=== PATIENT | female | born 1935 | race Caucasian/White ===

== ENCOUNTER 2021-01-27 18:57 | Inpatient (IN) | payer OTHER ==
[~2021-01-27] VITALS: Ht 162.6 cm; Wt 68.0 kg
[2021-01-27 20:18] LABS: HEMATOCRIT 22.6 % (31.2-41.9); MEAN CORPUSCULAR HEMOGLOBIN 31.2 uug (24.7-32.8); MEAN CORPUSCULAR VOLUME 95.1 fL (75.5-95.3); PLATELET COUNT (AUTO) 518 K/uL (179-408)
[2021-01-27 20:26] LABS: CARBON DIOXIDE 21 mmol/L (21-32); CHLORIDE 108 mmol/L (98-107); CREATININE 1.2 mg/dL (0.6-1.3); GLUCOSE 157 mg/dL (74-106); POTASSIUM 4.2 mmol/L (3.5-5.1); UREA NITROGEN, BLOOD 30 mg/dL (7-18)
[2021-01-27 20:37] LABS: ALANINE AMINOTRANSFERASE 15 U/L (14-59); ALKALINE PHOSPHATASE 53 U/L (50-136); ASPARTATE AMINOTRANSFERASE 21 U/L (15-37); BILIRUBIN,DIRECT 0.1 mg/dL (0.0-0.2); BILIRUBIN,TOTAL 0.4 mg/dL (0.2-1.0); TOTAL PROTEIN, SERUM 3.9 g/dL (6.4-8.2)
[2021-01-27] MEDS ORDERED: VANCOMYCIN 1G/D5W 200 ML PIGGYBACK IV ONE (20:45)
[2021-01-27] MEDS ORDERED: CEFEPIME HCL 2 G in IV DEXTROSE 5% 100 ML IV ONE (20:45)
[2021-01-27] MEDS ORDERED: KLOR CON PO (20:52)
[2021-01-27] MEDS ORDERED: ATOR20TA PO (20:52)
[2021-01-27] MEDS ORDERED: LOSA100T31 PO (20:52)
[2021-01-27] MEDS ORDERED: APIX5TAB4 PO (20:52)
[2021-01-27] MEDS ORDERED: FURO-152 PO (20:52)
[2021-01-27] MEDS ORDERED: MELO-107 PO (20:52)
[2021-01-27] MEDS ORDERED: FLEC100T3 PO (20:52)
[2021-01-27] MEDS ORDERED: CEFEPIME HCL 1 G VIAL ONE (21:11)
[2021-01-27] MEDS ORDERED: levoFLOXacin 500 MG/D5W 100ML PIGGYBACK IV ONE (21:30)
[2021-01-27] MEDS ORDERED: AZITHROMYCIN IV 500 MG in IV DEXTROSE 5% 250 ML IV ONE (21:30)
[2021-01-27] MEDS ORDERED: AZTREONAM 1 G VIAL IV ONE (21:30)
--- NOTE | 2021-01-27 21:56 | NUR ---
Started 1st unit of PRBC. Patient tolerating infusion at this time.
[2021-01-27 22:04] LABS: *BILIRUBIN,URIN NEGATIVE (NEGATIVE); *BLOOD, URINE NEGATIVE (NEGATIVE); *CLARITY,URINE CLEAR (CLEAR); *COLOR,URINE YELLOW (YELLOW); *KETONES,URINE 1+ (NEGATIVE); *UROBILINOGEN,URINE 0.2 E.U./dl (NORMAL); LEUKOCYTE ESTERASE ,URINE NEGATIVE (NEGATIVE); NITRITE, URINE NEGATIVE (NEGATIVE); PH,URINE 5.5 (5.0-8.0); UGLUCOSE NEGATIVE (NEGATIVE)
[2021-01-27] MEDS ORDERED: AZTREONAM 1 G VIAL ONE (23:37)
--- NOTE | 2021-01-28 00:45 | NUR ---
IVPB Azactam completed.
--- NOTE | 2021-01-28 01:18 | NUR ---
Patient tolerated 1st unit of PRBC. 1st unit completed.
--- NOTE | 2021-01-28 01:49 | NUR ---
Dr Lema speaking with Donna saul MD.
--- NOTE | 2021-01-28 01:58 | NUR ---
Paged Epic panel onion farmer, Waiting for Diana Tolbert [employer] to call back.
--- NOTE | 2021-01-28 02:04 | NUR ---
Dr. Lema on panel call with Diana Tolbert.
[2021-01-28] MEDS ORDERED: Z GUARD REMEDY PASTE 57 GM TUBE TOP PRN (02:15)
[2021-01-28] MEDS ORDERED: IV LACTATED RINGERS SOLUTION 1,000 ML IV ONE ×2 (02:15→03:15)
[2021-01-28] MEDS ORDERED: MAGNESIUM HYDROXIDE 30 ML LIQUID UDC PO PRN (02:15)
[2021-01-28] MEDS ORDERED: ONDANSETRON 4 MG/2 ML VIAL IV PRN (02:15)
[2021-01-28] MEDS ORDERED: levoFLOXacin 500 MG/D5W 500 MG in PREMIXED 1 EACH IV SCH (02:15)
[2021-01-28 02:22] LABS: HEMATOCRIT 26.5 % (31.2-41.9)
[2021-01-28] MEDS ORDERED: levoFLOXacin 500 MG/D5W 100 ML ONE (02:22)
--- NOTE | 2021-01-28 02:51 | NUR ---
Transfered to 3rd floor Tele via gurny with no distress noted.
[2021-01-28] MEDS: ACETAMINOPHEN 325 MG TABLET PO PRN ×3 (03:15→20:12)
--- NOTE | 2021-01-28 04:24 | NUR ---
Pt arrived in the unit at 0253 via gurney. Admitted to [facility] for Symptomatic Anemia and Sepsis. No acute distress noted. Pleasant and cooperative. No active bleeding noted. Pertinent assessment done. Pt on NPO except meds. IV sites in left ac and right ac, patent and intact. IV LR running at 75 cc/ hr, x1 order. Safety measures maintained. Call light within reach. Will continue to monitor.
[2021-01-28 04:31] VITALS: BP 144/60
--- NOTE | 2021-01-28 08:00 | NUR ---
RECEIVED PATIENT IN BED AWAKE ALERT AND ORIENTED X3 WITH [place] BILATERALLY. NO BLEEDING NOTED. KEEP NPO SR ON MONITOR
[2021-01-28] MEDS: PANTOPRAZOLE SODIUM 40 MG VIAL IV SCH (08:19)
[2021-01-28] MEDS: LOSARTAN POTASSIUM 50 MG TABLET PO SCH (08:19)
--- NOTE | 2021-01-28 10:00 | NUR ---
SEEN BY DR WESLEY FOR CARDIAC FOLLOW-UP HELD ELIQUIS UNTIL CLEARED BY [facility] DOCTOR. NO SIGNS OF BLEEDING ON LR IV AT 75 TO COMPLETE
--- NOTE | 2021-01-28 10:30 | NUR ---
SEEN BY DR BJORN RIVERAATATED PLAN OF CARE AND ADVISED TO FINISH IVF AND START ON CARDIAC DIET
[2021-01-28 11:33] VITALS: BP 138/53
--- NOTE | 2021-01-28 15:11 | NUR ---
RESTING COMFORTABLY IN BED NO SIGNS OF ACTIVE BLEEDING FROM THE NOSE.
[2021-01-28 15:27] VITALS: BP 129/50
[2021-01-28 17:16] LABS: *OCCULT BLOOD STOOL POSITIVE (NEGATIVE)
--- NOTE | 2021-01-28 18:49 | NUR ---
Patient noted blood in the stool. notified with orders STOOL OB and came back POSITIVE. Per Dr. Rico order, collected COVID19 PCR and discontinued LR. Transfer patient to isolation room. Patient is resting in bed with no signs of distress or discomfort. O2 saturating at 95% on RA. Call lights within reach, bed in lowest position and bed alarm on.
[2021-01-28] MEDS: ATORVASTATIN 20 MG TABLET PO SCH (20:12)
[2021-01-28 20:30] VITALS: BP 133/53
[2021-01-29] VITALS (9 sets, daily range): BP systolic 137–164; BP diastolic 56–89
[2021-01-29] MEDS: LEVOFLOXACIN/D5W 250 MG in PREMIX 1 EA IV SCH (01:29)
[2021-01-29] MEDS: ACETAMINOPHEN 325 MG TABLET PO PRN ×3 (02:23→18:40)
--- NOTE | 2021-01-29 05:25 | NUR ---
Slept fairly. Heart monitor leads frequently off and patient refused to have it fixed stating"leave me alone I want to sleep". Charge nurse aware. Continue on IVPB antibiotic Levaquin without s/s of adverse reaction noted. Remain afebrile. No s/s of respiratory distress. No BM reported. No episode of nose bleed. Continue care as planned.
[2021-01-29 07:24] LABS: HEMATOCRIT 22.8 % (31.2-41.9); MEAN CORPUSCULAR VOLUME 94.1 fL (75.5-95.3); PLATELET COUNT (AUTO) 297 K/uL (179-408)
[2021-01-29 07:39] LABS: CREATININE 1.1 mg/dL (0.6-1.3); MAGNESIUM 2.2 mg/dL (1.8-2.4); PHOSPHOROUS 3.9 mg/dL (2.5-4.9); POTASSIUM 4.1 mmol/L (3.5-5.1)
--- NOTE | 2021-01-29 08:00 | NUR ---
Received report from pm shift. Patient is resting in bed.Alert, Oriented x 4, 02 saturating at 97% on RA. No signs of respiratory distress. Patient appears anxious but remains calm. Morning medications given and compliant. IV intact and patent. Call lights within reach, bed at the lowest positioned and bed alarm on.
[2021-01-29] MEDS: PANTOPRAZOLE SODIUM 40 MG VIAL IV SCH ×2 (08:23→20:37)
[2021-01-29] MEDS: LOSARTAN POTASSIUM 50 MG TABLET PO SCH (08:32)
--- NOTE | 2021-01-29 10:05 | NUR ---
Small black, formed stool amount noted in BM. Will continue to monitor.
--- NOTE | 2021-01-29 11:00 | NUR ---
HOSPITALIST RADHA DODSON IN AND EXAMINED PATIENT MADE AWARE OF LAB RESULTS WITH ORDER TO TRANSFUSE 1 UNIT OF PRBC
--- NOTE | 2021-01-29 16:08 | NUR ---
RBC blood transfusion started. Patient closely monitored
--- NOTE | 2021-01-29 16:29 | NUR ---
Noted vital signs no change from initial blood transfusion. no signs of reaction. will continue to monitor
--- NOTE | 2021-01-29 18:10 | NUR ---
Patient lying in bed with RBC transfusing. Patient tolerating RBC transfusion well. Alert, oriented x 4. Oxygen saturating at 97% on RA. No signs of respiratory distress. Patient compliant with medication and care. Call lights within reach, bed locked at lowest position, bed alarm on, and side rails x 2 up.
--- NOTE | 2021-01-29 18:53 | NUR ---
Hospitalist Mayito Figueredo NP notified pt bp 171/80 and gave orders for PRN hydralazine 10 mg Q6H for SBP > 170.
[2021-01-29] MEDS: hydrALAZINE HCL 20 MG/1 ML VIAL IV PRN (19:03)
--- NOTE | 2021-01-29 19:32 | NUR ---
Patient in bed awake alertx4.Noted to be anxious about her Blood transfusion. Re-assurance rendered.Blood transfusion completed.No a/r noted.Iv patent and intact on Rt AC 20g.On RA sating at 97%.No s/s of distress noted.Continent to both B & B.Urinated with the use of bedpan.No hematuria.Call light with in reach.Will continue to monitor.
[2021-01-29] MEDS: ATORVASTATIN 20 MG TABLET PO SCH (20:34)
[2021-01-29 22:57] LABS: HEMATOCRIT 26.8 % (31.2-41.9)
[2021-01-30] MEDS: LEVOFLOXACIN/D5W 250 MG in PREMIX 1 EA IV SCH (02:37)
[2021-01-30 04:30] VITALS: BP 152/48
[2021-01-30] MEDS: ACETAMINOPHEN 325 MG TABLET PO PRN (06:39)
[2021-01-30] MEDS ORDERED: PANTOPRAZOLE SODIUM 40 MG TABLET.DR PO SCH (07:00)
[2021-01-30 07:06] LABS: HEMATOCRIT 26.8 % (31.2-41.9); MEAN CORPUSCULAR HEMOGLOBIN 31.9 uug (24.7-32.8); MEAN CORPUSCULAR VOLUME 92.2 fL (75.5-95.3); PLATELET COUNT (AUTO) 299 K/uL (179-408)
[2021-01-30 07:34] LABS: MAGNESIUM 2.1 mg/dL (1.8-2.4); POTASSIUM 3.8 mmol/L (3.5-5.1)
[2021-01-30] MEDS: PANTOPRAZOLE SODIUM 40 MG VIAL IV SCH ×2 (08:10→20:34)
[2021-01-30] MEDS: hydrALAZINE HCL 20 MG/1 ML VIAL IV PRN (08:12)
--- NOTE | 2021-01-30 09:06 | NUR ---
received this morning awake and anxious about covid/test results. told her that we will tell her as soon as results are available and she verbalized understanding. denies pain or sob. on room air sat 96%. bed lowest and locked siderails up x2. assisted with voiding. kept comfortable. cont to monitor.
--- NOTE | 2021-01-30 09:12 | NUR ---
seen and examined by dr. singh report given
--- NOTE | 2021-01-30 10:01 | NUR ---
spoke with dr. blount and report given no epistaxis, no bloody stool no vomiting blood reported. he said may advanced diet. informed him there's order for cardiac diet starting lunch today he said that's ok. no new orders received at this time.
[2021-01-30] MEDS: LOSARTAN POTASSIUM 50 MG TABLET PO SCH (11:14)
--- NOTE | 2021-01-30 11:56 | NUR ---
per merlin director and tameka salcedo director ok to pt to room 301A. aware. left vm for dtr josé manuel.
[2021-01-30 12:00] VITALS: BP 143/61
[2021-01-30 16:00] VITALS: BP 107/53
[2021-01-30 16:47] LABS: ALPHA-1-GLOBULIN 0.3; ALPHA-2-GLOBULIN 0.7
[2021-01-30 16:48] LABS: BETA GLOBULIN 0.7; GAMMA GLOBULIN 0.8; M-SPIKE 0.2 High
[2021-01-30 16:49] LABS: A/G RATIO 0.9; GLOBULIN, TOTAL 2.6
--- NOTE | 2021-01-30 19:12 | NUR ---
comfortable in new room. no acute distress. denies pain or sob. on iv at no adverse/allergic reaction noted. safety measures in place. needs attended. call light in reach.
--- NOTE | 2021-01-30 19:30 | NUR ---
RECEIVED PT AWAKE, ALERT AND ORIENTEDX3. PT IN NO ACUTE DISTRESS. IV INTACT. SAFETY AND COMFORT PROVIDED. WILL CONTINUE TO MONITOR.
[2021-01-30 20:00] VITALS: BP 155/62
[2021-01-30] MEDS: ATORVASTATIN 20 MG TABLET PO SCH (20:34)
[2021-01-31] MEDS: ACETAMINOPHEN 325 MG TABLET PO PRN (00:36)
[2021-01-31] MEDS: LEVOFLOXACIN/D5W 250 MG in PREMIX 1 EA IV SCH (02:19)
[2021-01-31 04:00] VITALS: BP 155/67
--- NOTE | 2021-01-31 06:17 | NUR ---
PT SLEPT INTERMITTENTLY. PT IN NO ACUTE DISTRESS. PRESCRIBED MEDICATION GIVEN AND PT TOLERATED IT WELL.PT GIVEN TYLENOL 650 MG PRN AT 0036H FOR GENERALIZED PAIN. PT TOLERATED IT WELL. SAFETY AND COMFORT PROVIDED. WILL CONTINUE TO MONITOR.
[2021-01-31 06:29] LABS: HEMATOCRIT 27.2 % (31.2-41.9); MEAN CORPUSCULAR VOLUME 92.8 fL (75.5-95.3); PLATELET COUNT (AUTO) 282 K/uL (179-408)
[2021-01-31 07:07] LABS: CREATININE 1.2 mg/dL (0.6-1.3); MAGNESIUM 2.1 mg/dL (1.8-2.4); POTASSIUM 3.6 mmol/L (3.5-5.1)
[2021-01-31] MEDS: PANTOPRAZOLE SODIUM 40 MG VIAL IV SCH (08:24)
[2021-01-31] MEDS: LOSARTAN POTASSIUM 50 MG TABLET PO SCH (08:27)
[2021-01-31] MEDS ORDERED: AMLODIPINE 5 MG TABLET PO SCH (09:00)
[2021-01-31 09:13] VITALS: BP 129/50
--- NOTE | 2021-01-31 11:00 | NUR ---
received patient from ongoing nurse, patient is alert and oriented x4 and able to make needs known. patient is on bathroom privileges, currently with iv site to right hand in place and patent. patient able to move all extremities, requires ` person assistance for safety. v/s bp: 103/73 p:100, rr: 16 t: 98.1, spo2 94%on r.a patient denies pain at this time. reminded to use call light for assistance. call light within reach. side rails upx2.
[2021-01-31 11:07] VITALS: BP 139/51
--- NOTE | 2021-01-31 11:09 | NUR ---
PT IN NO ACUTE DISTRESS. IV INTACT. PRESCRIBED MEDICATION GIVEN AND PT TOLERATED IT WELL.SAFETY AND COMFORT PROVIDED. WILL ENDORSE TO INCOMING NURSE FOR CONTINUITY OF CARE.
[2021-01-31] MEDS ORDERED: AMLO-212 PO (11:43)
[2021-01-31] MEDS ORDERED: LEVO500T90 PO (11:43)
--- NOTE | 2021-01-31 12:30 | NUR ---
New discharge orders for patient. Mayito Lema spoke with patient, patient stating she doesnt want to go to a SNF, per Mayito Lema patient is to go home with assistance of PT or home health. patient aware and all questions answered.
[2021-01-31 15:34] VITALS: BP 115/56
--- NOTE | 2021-01-31 16:15 | NUR ---
Spoke with daughter chris for steel pickler time, per chris i still want to talk to field case manager, called Ary field case manager, per Ary, she will give Chris a call back regarding home assistance for patient.
--- NOTE | 2021-01-31 16:16 | NUR ---
Discharge instructions given patient, assisted in getting dressed. patient expresses understanding of discharge instruction. new medication regimen explained to patient, patient also expresses understanding. reminded patient to call 911 or go to nearest ER if symptoms worsen. inventory reviewed with patient all personal belonging accounted for and form signed. Body check performed and pictures where placed in chart. explained to patient that daughter will call floor when she is at lobby and that i will take her down in a w/c. as well as removing id band a iv site before discharged as well.
--- NOTE | 2021-01-31 16:44 | NUR ---
MANASA Perez in unit, assisted patient on to car, taken downstairs in a w/c.
[2021-02-01 08:06] LABS: *IMMUNOGLOBULIN G, SERUM 935 mg/dL (586-1602); IMMUNOGLOBULIN A, SERUM 135 mg/dL (64-422); IMMUNOGLOBULIN M, SERUM 31 mg/dL (26-217)
== END 2021-01-31 16:45 | disposition home health service (06) | DRG 871 ==
LOC: ER 19:35 → TELE3 01-28 02:24 → MEDSURG3 01-28 10:11 → TELE3 01-28 18:17 → MEDSURG3 01-29 08:14
PROVIDERS: ADMIT Student in an Organized Health Care Education/Training Program; ATTEND Nurse Practitioner Family
PROC: 30233N1 Transfusion of Nonautologous Red Blood Cells into Peripheral Vein, Percutaneous Approach (ICD-10-PCS; principal; 2021-01-27)
DX: A41.9 Sepsis, unspecified organism (principal); J12.9 Viral pneumonia, unspecified; D62 Acute posthemorrhagic anemia; E44.0 Moderate protein-calorie malnutrition; E87.2 Acidosis; R04.0 Epistaxis; Z86.16 Personal history of COVID-19; I48.0 Paroxysmal atrial fibrillation; Z79.01 Long term (current) use of anticoagulants; E03.9 Hypothyroidism, unspecified; E78.5 Hyperlipidemia, unspecified; Z87.891 Personal history of nicotine dependence; R53.1 Weakness; D64.9 Anemia, unspecified; I10 Essential (primary) hypertension; R19.5 Other fecal abnormalities; Z68.25 Body mass index [BMI] 25.0-25.9, adult; Z88.0 Allergy status to penicillin; K21.9 Gastro-esophageal reflux disease without esophagitis; Z20.822 Contact with and (suspected) exposure to COVID-19
CPT/HCPCS: 36415; 70030-TC; 71045; 82747; 82784; 83550; 83605; 83735; 84100; 84155; 84165; 85014; 85018; 85025; 85730; 86334; 86850; 86900; 86901; 86920; 87040; 93005; 97161; C1758; C9113; G0378; J0360; J0692; J1956; J3370; J3490; J7050; J7060; J7120; P9016; U0003